=== PATIENT | female | born 1980 | race Caucasian/White ===

== ENCOUNTER → 2025-03-24 12:29 | Outpatient (CLI) | payer OTHER, SELFPAY ==
--- NOTE | 2025-03-24 12:35 | DI.RAD.S_ITS ---
PROCEDURE: XR DEXA AXIAL SKELETON INDICATIONS: History of osteopenia COMPARISON: None. FINDINGS: Lumbar Spine: Bone mineral density is 0.947 g/cm2, T score -0.5. Left Femoral Neck: Bone mineral density 0.724 g/cm2, T score -0.7. Left Hip: Bone mineral density 0.953 g/cm2, T score 0.4,. Fracture Risk Calculation (when applicable): 10-year fracture risk of a major osteoporotic fracture 4.2 percent and of a hip fracture 0.3 percent. (T score greater or equal to -1.0 to: NORMAL) (T score from -1.1 to -2.4: OSTEOPENIA) (T score less than or equal to -2.5: OSTEOPOROSIS) IMPRESSION: Normal bone mineral density. Follow-up guidelines as follows: Osteoporosis: Consider a repeat DEXA and Vertebral Fracture Assessment (VFA) exam in 2 years or sooner if medically necessary, to reassess this patient's status. Osteopenia: Consider a repeat DEXA in 2-3 years to reassess this patient's status, or if there is a new clinical indication. Normal: Consider a repeat DEXA in 5 years or sooner, or if there is a new clinical indication. All treatment decisions require clinical judgment and consideration of individual patient factors, including patient preferences, comorbidities, previous drug use, risk factors not captured in the FRAX model (e.g., frailty, falls, vitamin D deficiency, increased bone turnover, interval significant decline in bone density ) and possible under- or over-estimation of fracture risk by FRAX. In addition, the NOF Guide recommends that FDA-approved medical therapies be considered in postmenopausal women and men age >= 50 years with a: * Hip or vertebral (clinical or morphometric) fracture * T-score of <=-2.5 at the spine or hip * Ten-year fracture probability by FRAX of >= 3% for hip fracture or >=20% for major osteoporotic fracture. Dictated by: Joyce Warren M.D. on 03/25/2025 at 15:40 Approved by: Joyce Warren M.D. on 03/25/2025 at 15:40
== END ==
LOC: RAD 12:34
DX: M85.80 Other specified disorders of bone density and structure, unspecified site (principal); Z87.39 Personal history of other diseases of the musculoskeletal system and connective tissue
CPT/HCPCS: 77080

== ENCOUNTER → 2025-03-30 09:14 | Outpatient (CLI) | payer OTHER, SELFPAY ==
--- NOTE | 2025-03-30 09:16 | DI.US.S_ITS ---
MM diagnostic mammo BI, US breast LT limited: 03/30/2025 BI-RADS: 3 CLINICAL: 45-year old female for bilateral diagnostic mammogram and left diagnostic breast ultrasound. Tyrer-Cuzick lifetime risk of 11.8%. No personal or first- degree family history of breast cancer. Current reported family history of breast cancer: maternal grandmother. The patient reports a palpable abnormality (1 month) and pain (1 month) in the left breast. The palpable abnormality has decreased in size. PRIOR EXAMS: None. This is a baseline examination. MAMMOGRAPHY TECHNIQUE: 2D and 3D (tomosynthesis) digital mammographic views obtained, with additional images as needed for full coverage. Current study was also evaluated with a Computer Aided Detection (CAD) system. ULTRASOUND TECHNIQUE Real-time sagastume scale and color doppler imaging of the area of clinical interest was performed with image documentation. Left targeted breast ultrasound of the area of clinical interest and the axilla was performed with image documentation. DENSITY C. The breasts are heterogeneously dense, which may obscure small masses. MAMMOGRAPHY FINDINGS Right: No suspicious mass, asymmetry, microcalcification, or other abnormality seen. Left: Upper Outer Quadrant, Anterior depth: A skin marker was placed in the area of concern, and no mammographic abnormalities are identified or to account for concern by the patient of a palpable lump and pain/tenderness. No suspicious mass, asymmetry, microcalcification, or other abnormality seen. Left: MLO only, Axilla: There are prominent axillary lymph nodes. ULTRASOUND FINDINGS Left: Axilla, measuring 3.1 x 0.7 cm: There is a lymph node with concentric cortical thickening. Cortical thickening measures up to 0.4 cm. This may be reactive. Left: Outer at 3:00, 1.5 cm from nipple, measuring 0.7 x 0.4 x 0.5 cm: Underlying surface marker and correlating with palpable lump and pain/tenderness, there are clustered macrocysts. Doppler shows no vascularity. IMPRESSION: Right * No evidence of malignancy. Left (Lymph Node): Axilla, measuring 3.1 x 0.7 cm * Probably Benign. RECOMMENDATIONS Left: Axilla * Three month followup with diagnostic ultrasound. COMMENTS: Findings and recommendations were conveyed to the patient during today's evaluation. OVERALL ASSESSMENT CATEGORY BI-RADS-3: Probably Benign. ELECTRONICALLY SIGNED: Leisa Adame M.D. on 03/30/2025 at 12:42:36 PM PT Interpreting Station ID: [id number]
== END ==
LOC: MAMMO 09:15
DX: R92.8 Other abnormal and inconclusive findings on diagnostic imaging of breast (principal); N64.4 Mastodynia; R59.0 Localized enlarged lymph nodes; R92.333 Mammographic heterogeneous density, bilateral breasts; Z80.3 Family history of malignant neoplasm of breast
CPT/HCPCS: 76642; 77066; G0279